=== PATIENT | male | born 1985 | race Hispanic/Latino ===

== ENCOUNTER 2019-12-04 21:58 | Emergency (ER) | payer OTHER, SELFPAY ==
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
[2019-12-04 22:02] VITALS: BP 146/81; PULSE 111; RESP 20; TEMP 36.6; O2SAT 100
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
[2019-12-04] MEDS: KETOROLAC (*BKC) 60 MG/2 ML VIAL IM (23:24)
[2019-12-05 00:21] VITALS: BP 154/88; PULSE 88; RESP 18; O2SAT 99
== END 2019-12-05 00:22 | disposition home or self-care (01) ==
PROVIDERS: Emergency Provider Emergency Medicine
DX: S29.012A Strain of muscle and tendon of back wall of thorax, initial encounter (principal); V43.52XA Car driver injured in collision with other type car in traffic accident, initial encounter
CPT/HCPCS: 72072; 96372; 99283; J1885

== ENCOUNTER 2020-10-15 10:35 | Emergency (ER) | payer SELFPAY ==
[2020-10-15 10:46] VITALS: BP 155/101; PULSE 136; RESP 18; TEMP 37.6; O2SAT 100
--- NOTE | 2020-10-15 11:03 | PC.NURSE ---
1102- Pt reported to DIGITAL SALES DIRECTOR he thinks it was powdered cocaine that he ingested.
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
== END 2020-10-15 11:13 | disposition short-term general hospital (02) ==
PROVIDERS: Emergency Provider Nurse Practitioner
DX: R00.2 Palpitations (principal)
CPT/HCPCS: 93005; 99213; G0463

== ENCOUNTER 2020-10-15 11:28 | Emergency (ER) | payer SELFPAY ==
[2020-10-15] VITALS (48 sets, daily range): BP systolic 131–170; BP diastolic 65–125; PULSE 105–144; RESP 10–28; TEMP 36.7; O2SAT 92–100
--- NOTE | ~2020-10-15 | XR_ITS ---
EXAMINATION: XR chest 1V portable 10/15/2020 11:57 INDICATION: Palpitations. Tachycardia. PROCEDURE: AP portable chest COMPARISON: No prior studies for comparison. FINDINGS: The lungs are clear. Low lung volumes with crowding of the pulmonary vasculature. The cardi omediastinal silhouette is within normal limits. There are no pleural effusions. There is no pneumo thorax suspected. IMPRESSION: 1: NO ACUTE CARDIOPULMONARY DISEASE. Reviewed, dictated and finalized at location A. K PILER
--- NOTE | 2020-10-15 11:34 | ECG_ITS ---
SINUS TACHYCARDIA POSSIBLE LEFT VENTRICULAR HYPERTROPHY BORDERLINE ST-T WAVE ABNORMALITY- DIFFUSE LEADS BASELINE ARTIFACT- I, II, AVR, V1, V4-V6 ABNORMAL ECG Electronically Signed On 10-15-2020 11:51:15 LEGAL EXECUTIVE ASSISTANT by Chuck Martins D.O. COMPARED TO ECG 10/15/2020 10:54:13 NO SIGNIFICANT CHANGES MTDD
[2020-10-15 11:59] LABS: Basophils Absolute Auto 0.1 K/mm3 (0.0-0.1); Basophils Percent Auto 0.6 % (0.2-1.2); Eosinophils Percent Auto 0.3 % (0-4.4); Hematocrit 43.9 % (42.0-52.0); Hemoglobin 14.8 g/dL (14.0-18.0); Immature Granulocyte Absolute 0.06 K/mm3 (0.00-0.031); Immature Granulocyte Percent A 0.5 % (0-0.5); Lymphocytes Absolute Auto 2.25 K/mm3 (0.9-3.2); Lymphocytes Percent Auto 19.9 % (18.3-44.2); Mean Corpuscular HGB Conc 33.7 g/dl (32-36); Mean Corpuscular Hemoglobin 27.1 pg (26-34); Mean Corpuscular Volume 80.4 fl (80-100); Mean Platelet Volume 9.4 fl (7.4-10.4); Monocytes Absolute Auto 1.3 K/mm3 (0.1-0.6); Monocytes Percent Auto 11.3 % (2.6-8.5); Neutrophils Absolute Auto 7.6 K/mm3 (1.3-6.7); Neutrophils Percent Auto 67.4 % (45.5-73.1); Platelet Count Result 414 k/mm3 (150-375); Red Blood Count 5.46 M/mm3 (4.6-6.20); Red Cell Distribution Width 14.7 % (11.5-14.5); White Blood Count 11.3 K/mm3 (4.5-10.0)
[2020-10-15 12:08] LABS: INR 0.9; Prothrombin Time 12.9 Seconds (11.1-14.7)
[2020-10-15 12:10] LABS: Partial Thromboplastin Time 28.2 SECONDS (22.3-36.8)
[2020-10-15] MEDS: SODIUM CHLORIDE 0.9% IV 1,000 ML 999 ML IV CONT (12:23)
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
[2020-10-15 12:37] LABS: Anion Gap 10 mmol/L (8-16); Blood Urea Nitrogen 9 mg/dL (9-20); Calcium 9.7 mg/dL (8.4-10.2); Carbon Dioxide 29 mmol/L (22-30); Chloride 97 mmol/L (98-107); Estimated CRCL calculation 167 ml/min; Estimated Glomerular Filt Rate > 60; Glucose 122 mg/dL (75-110); Potassium 3.4 mmol/L (3.4-5.0); Sodium 136 mmol/L (137-145)
[2020-10-15] MEDS: dilTIAZem HCl INJ 25 MG/5 ML VIAL 10 MG IV PUSH (12:47)
[2020-10-15 12:50] LABS: Troponin I < 0.012 ng/mL (0.000-0.034)
[2020-10-15 12:57] LABS: Ethanol < 10 mg/dL (<10)
[2020-10-15] MEDS: LORazepam INJ (*CRX) 2 MG/ML VIAL 1 MG IV PUSH (13:09)
--- NOTE | 2020-10-15 13:46 | PC.NURSE ---
patient unhooked from monitor. assisted to restroom to provide urine specimen.
[2020-10-15 14:05] LABS: Add Urine Microscopic? YES; Appearance Urine Clear (Clear); Bilirubin Urine Negative (Negative); Blood Urine Negative (Negative); Color Urine Yellow (Yellow); Glucose Urine UA Negative (Negative); Ketones Urine 1+ mg/dL (Negative); Leukocyte Esterase Ur Negative LEU/UL (Negative); Mucus Urine Moderate /lpf; Nitrate Urine Negative (Negative); Protein Urine 1+ mg/dL (Negative); RBC Urine 0-2 /hpf (0-2); Specific Grav Ur 1.019 (1.001-1.035); Squamous Epithelial Cell Urine Rare /hpf (Few); WBC Urine 0-3 /hpf
[2020-10-15 14:16] LABS: Barbiturate Screen Urine Negative (Negative); Benzodiazepines Screen Urine Negative (Negative)
[2020-10-15 14:29] LABS: Cannabinoid Screen Urine Negative (Negative); Cocaine Screen Urine Negative (Negative); Methadone Screen Urine Negative (Negative); Opiate Screen Urine Negative (Negative); Phencyclidine Screen Urine Negative (Negative)
[2020-10-15 14:46] LABS: Amphetamine Screen Urine Positive (Negative)
[2020-10-15 15:52] LABS: Troponin I < 0.012 ng/mL (0.000-0.034)
[2020-10-15] MEDS: LABETALOL HCL INJ 100 MG/20 ML VIAL 20 MG IV PUSH (16:54)
--- NOTE | 2020-10-15 17:43 | ECG_ITS ---
Measurements Intervals [place] Rate: 110 P: 0 MN: 131 QRS: -11 QRSD: 97 T: -3 QT: 333 QTc: 452 Interpretive Statements SINUS TACHYCARDIA BORDERLINE T WAVE ABNORMALITY- INFERIOR LEADS BASELINE ARTIFACT- I, II, AVR, V1 ABNORMAL ECG Electronically Signed On 10-15-2020 19:17:10 COFFEE FARMER by Chuck Martins D.O.
== END 2020-10-15 19:33 | disposition home or self-care (01) ==
PROVIDERS: Emergency Medicine; Emergency Provider Emergency Medicine
DX: R00.0 Tachycardia, unspecified (principal); I10 Essential (primary) hypertension; F15.10 Other stimulant abuse, uncomplicated; R94.31 Abnormal electrocardiogram [ECG] [EKG]
CPT/HCPCS: 36415; 71045; 80048; 80307; 81001; 84443; 84484; 85025; 85610; 85730; 93005; 96361; 96374; 96375; 99284; J2060; J7030